=== PATIENT | female | born 1955 | race Two or more races ===

== ENCOUNTER 2020-01-06 18:39 | Emergency (ER) | payer MEDICAID ==
[~2020-01-06] VITALS: Ht 154.9 cm; Wt 65.0 kg
[2020-01-06 18:43] VITALS: BP 161/87
[2020-01-06] MEDS ORDERED: HYDROCODONE/ACETAMINOPHEN 5/325MG TABLET PO ONE (19:00)
== END 2020-01-06 20:55 | disposition home or self-care (01) ==
LOC: ER 18:39
DX: M54.5 Low back pain (principal); I10 Essential (primary) hypertension
CPT/HCPCS: 99283